=== PATIENT | female | born 1990 | race Caucasian/White ===

== ENCOUNTER 2022-02-13 11:09 | Emergency (ER) | payer MEDICAID ==
[~2022-02-13] VITALS: Ht 157.5 cm; Wt 73.0 kg
[2022-02-13] MEDS ORDERED: FAMOTIDINE 20MG/2ML VIAL IV ONE (11:30)
[2022-02-13 12:03] LABS: EOSINOPHILS % 2.3 % (0.0-5.0); HEMATOCRIT. 30.3 % (36.0-48.0); HEMOGLOBIN. 8.3 g/dL (12.0-16.0); LYMPHOCYTES % 11.8 % (20.0-50.0); MEAN CORPUSCULAR HEMOGLOBIN 18.6 pg (28.0-32.0); MEAN CORPUSCULAR VOLUME 67.9 fL (81.0-99.0); MEAN PLATELET VOLUME 7.3 fl (7.4-10.4); MONOCYTES % 7.3 % (2.0-8.0); NEUTROPHILS % 77.6 % (40.0-76.0); PLATELET 420 x1000/uL (130-400); RED BLOOD CELL COUNT 4.46 mill/uL (4.2-5.4); RED CELL DISTRIBUTION WIDTH 23.4 % (11.6-14.6)
[2022-02-13 12:06] LABS: CHLORIDE 106 mEq/L (98-107)
[2022-02-13 13:25] VITALS: BP 153/82
[2022-02-13] MEDS ORDERED: P20 MT (13:43)
[2022-02-13] MEDS ORDERED: DIPH25CA83 MT (13:43)
[2022-02-13] MEDS ORDERED: FURO-152 MT (13:43)
[2022-02-13 13:51] LABS: PLATELET ESTIMATE INCREASED
== END 2022-02-13 14:04 | disposition home or self-care (01) ==
LOC: ER 11:09
DX: R22.0 Localized swelling, mass and lump, head (principal); H57.13 Ocular pain, bilateral; E87.70 Fluid overload, unspecified; R07.0 Pain in throat; T46.4X5A Adverse effect of angiotensin-converting-enzyme inhibitors, initial encounter; Y92.149 Unspecified place in prison as the place of occurrence of the external cause; I10 Essential (primary) hypertension; R94.31 Abnormal electrocardiogram [ECG] [EKG]
CPT/HCPCS: 36415; 71045; 80053; 83880; 84484; 85025; 93005; 96374; 99285; J3490